=== PATIENT | male | born 1960 | race Caucasian/White ===

== ENCOUNTER 2022-05-05 00:32 | Day surgery (SDC) | payer OTHER, SELFPAY ==
[2022-04-21 09:03] VITALS: BMI 24.4
--- NOTE | 2022-05-04 16:28 | PM.HPGS ---
History of Present Illness History of Present Illness Consent: Risks, benefits, and alternatives have been discussed and questions answered. Patient agrees to proceed with procedure. Chief complaint: neoplasm screening Narrative: Jose J Vazquez is a 61 year old male referred for colon cancer screening. His last colonoscopy was 10 years ago. Review of Systems Review of Systems: All systems reviewed & are unremarkable except as noted in HPI and below PMFSH Past Medical History Medical History Anxiety HTN (hypertension) Hyperlipidemia Surgical History Surgical History History of shoulder surgery Social History Social History Smoking status: Never smoker Alcohol intake: current Drinks per week: 14 Substance use type: does not use Living arrangements: with family Spiritual care concerns: No Meds Home Medications and Allergies Home Medications Medication Instructions Recorded Confirmed Type atorvastatin 40 mg tablet 40 mg PO DAILY 04/21/22 05/05/22 History hydrocodone 7.5 mg-acetaminophen 0.5 tablet PO BID 04/21/22 05/05/22 History 325 mg tablet lorazepam 1 mg tablet 1 mg PO DAILY PRN Anxiety 04/21/22 05/05/22 History quinapril 20 mg tablet 20 mg PO DAILY 04/21/22 05/05/22 History trazodone 100 mg tablet 100 mg PO HS 04/21/22 05/05/22 History Allergies Allergy/AdvReac Type Severity Reaction Status Date / Time No Known Allergies Allergy Verified 05/05/22 07:27 Exam Resp: Auscultation: clear to auscultation bilaterally Cardio: Rate: regular rate Rhythm: regular rhythm GI: GI Palp: Yes Soft to palpation and No Tenderness to palpation present (GI) Assessment and Plan Assessment and plan (1) Colon cancer screening: Code(s): Z12.11 - Encounter for screening for malignant neoplasm of colon Status: Acute Assessment and Plan: Colonoscopy with possible biopsy or polypectomy or cautery or injection of substances.
[2022-05-05 07:27] VITALS: BP 134/74; PULSE 102; RESP 16; TEMP 36.2; O2SAT 98; BMI 23.8
[2022-05-05] MEDS: LACTATED RINGERS 1,000 ML 150 ML IV CONT (07:35)
--- NOTE | 2022-05-05 08:17 | WPDANESEPPF ---
Anes - Initial Pre Proc Eval Procedure: Operation Date: 05/05/22 09:00 Proposed Procedures p Screening Colonoscopy - Pedro Steele MD Date/Time: 05/05/22 08:17 Surgeon: Pedro Steele MD Pre Op Diagnosis: neoplasm screening Patient Data Age: 61 Gender: M Height: 1.8 m Weight: 77.6 kg Last Vital Signs Temp 36.2 C L 05/05/22 07:27 Pulse 102 H 05/05/22 07:27 Resp 16 05/05/22 07:27 BP 134/74 05/05/22 07:27 Pulse Ox 98 05/05/22 07:27 O2 Del Method Room Air 05/05/22 07:27 Allergies Allergy/AdvReac Type Severity Reaction Status Date / Time No Known Allergies Allergy Verified 05/05/22 07:27 Home Medications Medication Instructions Recorded Confirmed Type atorvastatin 40 mg tablet 40 mg PO DAILY 04/21/22 05/05/22 History hydrocodone 7.5 mg-acetaminophen 0.5 tablet PO BID 04/21/22 05/05/22 History 325 mg tablet lorazepam 1 mg tablet 1 mg PO DAILY PRN Anxiety 04/21/22 05/05/22 History quinapril 20 mg tablet 20 mg PO DAILY 04/21/22 05/05/22 History trazodone 100 mg tablet 100 mg PO HS 04/21/22 05/05/22 History Patient hx anesthesia problems: none Family hx anesthesia problems: none Results Review: All pre-operative results and documents have been reviewed as part of the pre-operative evaluation. [facility] Past Medical History Medical History (Updated 05/05/22 @ 08:18 by Stan Garcia MD) Anxiety HTN (hypertension) Hyperlipidemia Surgical History Surgical History (Updated 05/05/22 @ 08:18 by Stan Garcia MD) History of shoulder surgery Social History Social History Smoking status: Never smoker Alcohol intake: current Drinks per week: 14 Substance use type: does not use Living arrangements: with family Spiritual care concerns: No Anes - Eval Final PreProcedure Day of Procedure 05/05/22 08:17 Patient weight: normal Heart: regular rate and rhythm Lungs: clear to auscultation Airway: Mallampati scale class II Neurological: alert and oriented Last oral intake: >/= 8 hours ASA classification: II Emergent: no Anesthetic plan: proceed Anesthesia type and monitoring: general GIVS and standard monitoring Results Review: All pre-operative results and documents have been reviewed as part of the pre-operative evaluation. Informed Consent: The patient's anesthetic plan and its attendant risks and benefits were discussed with the patient/family/POA. Questions were solicited and answers provided to the satisfaction of the patient/family/POA.
[2022-05-05] MEDS: SIMETHICONE ORAL SUSPENSION 20 MG/0.3 ML 30 ML BOTTLE 0.6 ML IRRIGATION (08:45)
[2022-05-05 08:52] VITALS: BP 113/72; PULSE 86; RESP 29; O2SAT 96
[2022-05-05 09:02] VITALS: BP 114/78; PULSE 81; RESP 22; O2SAT 96
[2022-05-05 09:12] VITALS: BP 146/94; PULSE 80; RESP 15; O2SAT 97
== END 2022-05-05 09:19 | disposition home or self-care (01) ==
PROVIDERS: PCP Internal Medicine; Visit Provider Internal Medicine Gastroenterology
PROC: 0DJD8ZZ Inspection of Lower Intestinal Tract, Via Natural or Artificial Opening Endoscopic (ICD-10-PCS; CPT 45378; principal; 2022-05-05 09:00)
DX: Z12.11 Encounter for screening for malignant neoplasm of colon (principal); K63.5 Polyp of colon; K57.30 Diverticulosis of large intestine without perforation or abscess without bleeding; I10 Essential (primary) hypertension; E78.5 Hyperlipidemia, unspecified; F41.9 Anxiety disorder, unspecified
CPT/HCPCS: 45380; 88305; J2704; J7120

== ENCOUNTER 2022-09-14 10:19 | Outpatient (CLI) | payer OTHER, SELFPAY ==
--- NOTE | ~2022-09-14 | MR_ITS ---
MRI of the right shoulder Technique: Axial proton-density fat-sat images, coronal proton density fat-sat and T2 fat-sat images, and sagittal T1-weighted and T2 fat-sat images were acquired. Clinical History: Pain Findings: There is mild to moderate degenerative change at the AC joint, with hypertrophic change at the distal clavicle in particular. Coracoclavicular, coracoacromial, and coracohumeral ligaments appe ar intact. There is complete, full-thickness tear involving the supraspinatus and infraspinatus tendons. Fluid-f illed gap measures approximately 3.9 x 4.5 cm in extent. Subscapularis tendon is intact with mild ten dinosis. Tendon of the long head of the biceps appears to be intact, though markedly diminutive. No d iscrete, detached labral tear identified. Inferior glenohumeral ligament is intact. There is moderate chondromalacia along the inferior aspect of the humeral head. Small joint effusion present with fluid passing through the rotator cuff defect into the subacromial/subdeltoid bursa. No muscle atrophy or edema evident. Impression: Complete, full-thickness tears of the supraspinatus and infraspinatus tendons, as detailed above. Apparent diminutive, though intact. Tendon of the long head of the biceps. [id number] AC joint degenerative change. Reviewed, dictated and finalized at [facility]. Impression: Complete, full-thickness tears of the supraspinatus and infraspinatus tendons, as detailed above. Apparent diminutive, though intact. Tendon of the long head of the biceps. [id number] AC joint degenerative change.
== END 2022-09-14 10:20 | disposition home or self-care (01) ==
PROVIDERS: PCP Internal Medicine; Visit Provider Orthopaedic Surgery Hand Surgery
DX: S46.811A Strain of other muscles, fascia and tendons at shoulder and upper arm level, right arm, initial encounter (principal); M19.011 Primary osteoarthritis, right shoulder; X58.XXXA Exposure to other specified factors, initial encounter
CPT/HCPCS: 73221